=== PATIENT | female | born 1990 | race Caucasian/White ===

== ENCOUNTER 2017-11-19 19:49 | Emergency (ER) | payer OTHER ==
[~2017-11-19] VITALS: Ht 165.1 cm; Wt 51.0 kg
[~2017-11-19 19:49] MED LIST: HYDR-3533 PO; IRONCAP2 PO; PRENTAB36 PO; PROM25TA5 PO
[2017-11-19 21:02] VITALS: BP 125/79; PULSE 102; RESP 16; TEMP 98.3; O2SAT 100
[2017-11-19] MEDS ORDERED: DICL50TA PO (21:21)
[2017-11-19] MEDS ORDERED: BACL10TA PO (21:21)
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
[2017-11-19] MEDS ORDERED: KETOROLAC TROMETHAMINE 60 MG/2 ML (IM) VIAL IM ONE (21:30)
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
== END 2017-11-19 22:19 | disposition home or self-care (01) ==
LOC: PHEFT 19:49
DX: S16.1XXA Strain of muscle, fascia and tendon at neck level, initial encounter (principal); R00.0 Tachycardia, unspecified; V49.49XA Driver injured in collision with other motor vehicles in traffic accident, initial encounter; Y92.410 Unspecified street and highway as the place of occurrence of the external cause; Z72.0 Tobacco use
CPT/HCPCS: 72050; 96372; 99283; J1885